=== PATIENT | female | born 1955 | race Caucasian/White ===

== ENCOUNTER 2022-01-18 13:02 | Outpatient (CLI) | payer MEDICARE, SELFPAY ==
[2022-01-18 13:37] LABS: Chloride* 100 mmol/L (96-114); Potassium* 3.9 mmol/L (3.6-5.1); Sodium* 140 mmol/L (135-149)
[2022-01-18 13:40] LABS: Blood Urea Nitrogen* 16 mg/dL (7-30); Carbon Dioxide* 33 mmol/L (20-32); Creatinine* 0.9 mg/dL (0.5-1.5); Estimated Glomerular Filt Rate 71 ml/min
[2022-01-18 13:41] LABS: Calcium* 9.7 mg/dL (8.4-10.6); Glucose* 225 mg/dL (60-115)
== END 2022-01-18 13:03 | disposition home or self-care (01) ==
PROVIDERS: PCP Internal Medicine; Visit Provider Internal Medicine
DX: I10 Essential (primary) hypertension (principal); Z13.1 Encounter for screening for diabetes mellitus
CPT/HCPCS: 80048

== ENCOUNTER 2022-02-21 15:15 | Outpatient (CLI) | payer MEDICARE, SELFPAY ==
--- NOTE | 2022-02-21 15:30 | CRLHL7_ITS ---
For Patients: As a result of the Century Cures Act, medical imaging exams and procedure reports are released immediately into your electronic medical record. You may view this report before your referring provider. If you have questions, please contact your health care provider. INDICATION: Radiculopathy. COMPARISON: 02/07/2022. Technique Sagittal T1, T2, and STIR sequences. Axial T1 and T2 weighted sequences. FINDINGS: Degenerative anterolisthesis of L4 on L5 measures approximately 3 mm. Otherwise, normal alignment. No fractures. No vertebral body loss of height. No evidence injury. No suspicious osseous lesions. Normal conus terminates at L1. T12-L1 L1-2 L2-3: No spinal canal neural foraminal narrowing. L3-4: Disc degeneration diffuse disc bulge eccentric to the left. Flattening of ventral thecal sac. Mild narrowing of spinal canal. Facet arthropathy results in mild right and moderate left neural foraminal narrowing. Potential impingement of the exiting left L3 nerve root. Mild facet arthropathy. L4-5: Disc degeneration. Diffuse disc bulge eccentric to the left. Mild narrowing of spinal canal. Facet arthropathy contributes to focal narrowing of the left subarticular recess with potential impingement of the traversing left L5 nerve root. No narrowing of the right neural foramen. Moderate narrowing of the left neural foramen. Potential impingement of the exiting left L4 nerve root. Mild facet arthropathy. L5-S1: No narrowing of spinal canal. No impingement of the traversing S1 nerve roots. No neural foraminal narrowing. Mild facet arthropathy. Normal visualized SI joints. IMPRESSION: 1. Trace degenerative anterolisthesis of L4 on L5. Otherwise normal alignment. No fractures 2. At L3-4, mild narrowing of the spinal canal. Mild right and moderate left neural foraminal narrowing. 3. At L4-5, mild narrowing of the spinal canal. Potential impingement of the traversing left L5 nerve root. Moderate narrowing of the left neuroforamen. Dictated by Sreekanth Redmond MD @ 02/21/2022 4:54:07 PM (Electronically Signed)
== END 2022-02-21 15:16 | disposition home or self-care (01) ==
LOC: MRI 15:16
PROVIDERS: PCP Internal Medicine; Visit Provider Orthopaedic Surgery Sports Medicine
DX: M54.16 Radiculopathy, lumbar region (principal); M51.26 Other intervertebral disc displacement, lumbar region; M62.830 Muscle spasm of back
CPT/HCPCS: 72148

== ENCOUNTER 2022-06-07 08:43 | Day surgery (SDC) | payer MEDICARE, SELFPAY ==
[2022-06-07] VITALS (24 sets, daily range): BP systolic 107–154; BP diastolic 52–84; PULSE 61–79; RESP 12–16; TEMP 35.5–37; O2SAT 90–97; BMI 39.4
[2022-06-07] MEDS: OXYCODONE (CR) 10 MG TAB.ER.12H PO (09:11)
[2022-06-07] MEDS: CELECOXIB 200 MG CAPSULE PO ×2 (09:11→21:24)
[2022-06-07] MEDS: ACETAMINOPHEN 500 MG TABLET 1000 MG PO ×2 (09:11→18:06)
[2022-06-07] MEDS: SODIUM CHLORIDE 0.9 % (FLUSH) 10 ML SYRINGE IVF (09:20)
[2022-06-07] MEDS: LACTATED RINGERS 1000 ML 1,000 ML 100 ML IV ×2 (09:20→13:05)
--- NOTE | 2022-06-07 12:07 | SUR.PREOP ---
TIME?OUT:?1208 PT/RN/MDA?VERIFICATION?OF?SURGICAL?SITE,?PROCEDURE,?AND?CONSENT OBTAINED?PRIOR?TO?INVASIVE?PROCEDURE.
[2022-06-07] MEDS: MIDAZOLAM HCL 1 MG/ML inj IVP (12:09)
[2022-06-07] MEDS: fentaNYL 100 MCG/2 ML inj IVP (12:09)
--- NOTE | 2022-06-07 12:12 | P.NB_ITS ---
Nerve Block Nerve Block Time Seen by Provider: 12:10 Date Seen: 06/07/22 Type of block requested by surgeon for post-operative analgesia: geniculars Side: left Time out performed: Yes Verification of patient name: Yes Verification of date of : Yes Site marking: site marked Name of person performing procedure: Alexi Continuous monitoring Was continuous monitoring of O2 sat, B/P, bed control specialist, recorded every 15 minutes?: Yes Procedure Checklist: sterile prep, needles and gloves Medications given in 5ml increments after negative aspiration: Ropivicaine %: 0.5 mL: 9 Needle gauge: 25 Patient tolerated procedure well: Yes Block Charges Block Charge (with Pro Fee): Genicular Nerve Block Use of Ultrasound Machine for Block: No
--- NOTE | 2022-06-07 12:12 | P.NB_ITS ---
Nerve Block Nerve Block Time Seen by Provider: 12:10 Date Seen: 06/07/22 Type of block requested by surgeon for post-operative analgesia: adductor canal Side: left Time out performed: Yes Verification of patient name: Yes Verification of date of : Yes Site marking: site marked Name of person performing procedure: Alexi Continuous monitoring Was continuous monitoring of O2 sat, B/P, cardiac nurse specialist, recorded every 15 minutes?: Yes Procedure Checklist: sterile prep, needles and gloves Ultrasound guided. Images saved: Yes Medications given in 5ml increments after negative aspiration: Ropivicaine %: 0.5 mL: 20 Needle gauge: 20 Decadron (mg): 10 Precedex (mcg): 25 Patient tolerated procedure well: Yes Additional comments: Needle noted adjacent to nerve Block Charges Block Charge (with Pro Fee): Femoral Nerve Use of Ultrasound Machine for Block: Yes- US Guidance/pain block
--- NOTE | 2022-06-07 12:12 | W.ANESCHARGE ---
Anesthesia Charges Start Date/Time Anesthesia Start Date: 06/07/22 Anesthesia Start Time: 12:15 Stop Date/Time Anesthesia Stop Date: 06/07/22 Anesthesia Stop Time: 14:21
[2022-06-07] MEDS: CEFAZOLIN 2 GM in 0.9 % SODIUM CHLORIDE Mini-bag 100 ML IVPB ×2 (12:25→18:06)
--- NOTE | 2022-06-07 12:26 | SUR.PREOP ---
Call placed to Jeremiah Russell ([phone]) to notify of delayed surgery time. Spouse verbalized understanding.
--- NOTE | 2022-06-07 12:28 | CRLHL7_ITS ---
For Patients: As a result of the Cures Act, medical imaging exams and procedure reports are released immediately into your electronic medical record. You may view this report before your referring provider. If you have questions, please contact your health care provider. Indication: POST OP TKA Technique: Two views left knee Findings/Impression: Hardware from a left total knee arthroplasty is in satisfactory position. Bone alignment is normal. No sign of acute fracture. Postop changes are within normal limits. Dictated by Ravinder Kim MD @ 06/08/2022 6:29:29 AM (Electronically Signed)
[2022-06-07] MEDS: TRANEXAMIC ACID 100 MG/ML INJ 1000 MG IV (12:30)
--- NOTE | 2022-06-07 13:45 | P.ORPRC_ITS ---
Procedure Note Date of procedure: 06/07/22 Procedure: PREOPERATIVE DIAGNOSIS: 1. Left knee osteoarthritis, primary, severe POSTOPERATIVE DIAGNOSIS: 1. Left knee osteoarthritis, primary, severe PROCEDURE: 1. Left total knee arthroplasty SURGEON: Chiki West MD. METER CHANGES RECORDS CLERK: RITU Baptiste - Of note, a skilled hotel administrative assistant was critical for this case to aid in patient positioning, tissue retraction, limb manipulation/positioning, and closure. ANESTHESIA: Spinal transition to LMA. EBL: 50ml IMPLANTS: DePuy J&J all cemented TKA - Attune PS femur size 6 narrow, size 7 tibia, 5 poly spacer, 35 mm patella TOURNIQUET: 85 min at 300 torr COMPLICATIONS: None evident INDICATIONS: The patient is a pleasant 66-year-old female who has experienced severe left knee pain and difficulty bearing weight. Workup included x-rays which revealed severe osteoarthrosis in the knee. Given the deformity, the dysfunction, and the pain, as well as the failure of nonoperative management, recommendation was made for surgery. FINDINGS: Full-thickness chondral loss broadly through the medial femur and medial tibial plateau were concave for dark and region of the distal femoral condyle suspicious of an AVN type of lesion. Significant patellofemoral cho ndromalacia as well. DESCRIPTION OF PROCEDURE: Following a thorough discussion of risks, benefits, and alternatives consent was obtained and the left knee was marked. The patient was brought to the operating room and placed supine on the operating table. Induction of anesthesia was undertaken. 2 g IV Ancef and 1 g tranexamic acid was administered within 1 hr of incision preoperatively. Proper time-out was performed identifying proper patient, site, procedure. The operative extremity was prepped and draped in the appropriate sterile fashion using ChloraPrep after the patient was positioned supine with all bony prominences well padded. A longitudinal, anterior, midline skin incision was made starting approximately 3cm proximal to the superior pole of the patella and advanced distal to the tibial tubercle. A median parapatellar arthrotomy was created. A medial subperiosteal sleeve was created with knife, asher elevator and curved osteotome. The retropatellar fatpad was resected and the synovium in the suprapatellar pouch excised to visualize the anterior femoral cortex. Femoral preparation was performed via an intramedullary guide. Step drill allowed access into the femoral canal. The distal cutting guide was placed with 5? of valgus and 11 mm cut on the distal femur. Femur was sized using a posterior referencing guide in 3? of external rotation. This found have a best fit with the sizing noted above. The 4 in 1 cutting block was then placed, and the distal femur shaped accordingly. The box cut was then created and the trial implant inserted to confirm appropriate fit. We turned our attention to the proximal tibia. Extramedullary guide was utilized for cutting with the goal of being 90 degree cut from the mechanical axis of the tibia in the varus/valgus plane utilizing tibial crest as the primary alignment. Initially a 2 mm resection was performed from the medial tibial plateau. An additional 2 mm the required resection. Ultimately, balancing was achieved in both flexion and extension in both varus and valgus. The knee was able to achieve full extension as well comfortably. The patella was initially measured and found have a thickness of 20 mm. It was resected back to approximately 14 mm. It was sized to be a best fit with as noted above. This was drilled, trial placed. All trials were placed and found to have an excellent stability and balance. At this stage, trial implants were removed, the knee was thoroughly irrigated with normal saline, and the cement was mixed. After irrigation, the knee was thoroughly dried, and cement placed, with the real tibial and femoral implants placed along with the patella. Trial poly spacer was placed and confirmed to have excellent range of motion and full extension, and the real poly spacer opened and inserted. All extra cement was removed, and a 3 min Betadine soak performed. Finally, a final irrigation round with normal saline was performed. Closure performed with 0 PDS and #0 Stratafix for the quad tendon/retinaculum. 2-0 Vicryl/Stratafix for the subcutaneous and 4-0 Monocryl for subcuticular closure. Dressings were applied and the patient was awoken from anesthesia after the tourniquet deflated and transferred the PACU in stable condition. A skilled hotel administrative assistant was critical for this case to aid in patient positioning, tissue retraction, bone exposure, limb manipulation/positioning, patient safety, and closure. PLAN: 1. Weight bear as tolerated operative extremity. 2. 23 hr perioperative antibiotics. 3. Ice. 4. PT/OT consults for ambulation assistance/mobility education. 5. Social work consult for discharge planning. 6. DVT prophylaxis with at SCDs, Slava Medeiros, and aspirin twice daily.
--- NOTE | 2022-06-07 14:21 | W.ANESCHARGE ---
Anesthesia Charges Start Date/Time Anesthesia Start Date: 06/07/22 Anesthesia Start Time: 12:15 Stop Date/Time Anesthesia Stop Date: 06/07/22 Anesthesia Stop Time: 14:21
[2022-06-07] MEDS: OXYCODONE 5 MG TABLET PO (16:10)
--- NOTE | 2022-06-07 16:13 | PM.IMCN1 ---
Date of Consult Patient: [facility] Patient Consult date: 06/07/22 Requesting Physician: Orthopedics Primary Care Provider: Jg Dean MD Consult Narrative Narrative: HOSPITALIST CONSULT Hospital Day # 1 Post Op Day # 0 total left knee arthroplasty SURGEON: Chiki West MD. ANESTHESIA: Spinal transition to LMA. EBL: 50ml IMPLANTS: DePuy TOURNIQUET: 85 min at 300 torr COMPLICATIONS: None evident The hospital medicine team was asked by Orthopedic team to manage the patient's diabetes, morbid obesity, COPD, chronic pain There have been no perioperative concerns or questions. I updated the [facility] histories and Medications and Allergies in the Expanse tabs REVIEW OF SYSTEMS: 12-point ROS completed with patient and negative unless otherwise stated in HPI or below. PHYSICAL EXAM: CODE STATUS: FULL CODE CONSTITUTIONAL: Conversive, good historian. A/O. Knows setting and context. VITAL SIGNS: see record. HEENT: Normocephalic, atraumatic. PERRL, EOMI, conjunctivae pink, no scleral icterus. Ears and nose externally normal. Pharynx normal. NECK: No JVD. No carotid bruit, no thyromegaly, no adenopathy. CHEST: Clear to auscultation bilaterally HEART: No harsh murmurs. S1/S2. ABDOMEN: Flat, soft, nontender. Normal bowel sounds. Moderately obese. EXTREMITIES: No edema. MUSCULOSKELETAL: Left knee is wrapped being iced. She is able to plantar flex and dorsiflex her left foot. No obvious hematoma. NEURO: Cranial nerves intact. Normal affect. No gross deficits. Speech intelligible. SKIN: No rashes, petechiae, concerning changes PSYCHIATRIC: Euthymic. INVESTIGATIONS: EMR Reviewed DISPOSITION: MedSurg Recovery; Discharge tomorrow DVT: Agree with ortho plan for DVT prevention GI: PO intake PFSH [facility] Medical History (Updated 06/07/22 @ 16:32 by Wendi Escamilla MD) Cataract (~2009) ?H26.9 - Unspecified cataract (ICD-10) Chronic low back pain ?M54.50 - Low back pain, unspecified (ICD-10) ?G89.29 - Other chronic pain (ICD-10) COPD (chronic obstructive pulmonary disease) ?J44.9 - Chronic obstructive pulmonary disease, unspecified (ICD-10) Diabetes ?E11.9 - Type 2 diabetes mellitus without complications (ICD-10) Hypertension ?I10 - Essential (primary) hypertension (ICD-10) Surgical History (Updated 06/07/22 @ 16:31 by Wendi Escamilla MD) History of tonsillectomy (~1965) ?Z90.89 - Acquired absence of other organs (ICD-10) Status post arthroscopy of left shoulder (07/05/05) ?Z98.890 - Other specified postprocedural states (ICD-10) Status post total left knee replacement (06/07/22) ?Z96.652 - Presence of left artificial knee joint (ICD-10) Family History (Updated 06/01/22 @ 12:37 by Fawn Mccallum RN) Brother Diabetes Colon cancer Bladder cancer High blood pressure Father Diabetes High blood pressure Sister Diabetes Colon cancer High blood pressure Mother Diabetes Colon cancer High blood pressure COPD (chronic obstructive pulmonary disease) Social History (Updated 05/02/22 @ 14:10 by Nikki Schulz ~ [facility] Smoking Status: Former smoker What tobacco products do you use: cigarettes Smoking packs per day: 1 Smoking cigarettes per day: 20.0 Years smoked: 46 Smoking pack-years: 46.00 Smoking quit date/years: <= 15 years ago Do you use any of these nicotine containing products: None Second hand tobacco smoke exposure: No How often do you have a drink containing alcohol: never AUDIT-C Alcohol total score: 0 Non-prescribed substance use: denies use Caffeine: Yes (occ) Little interest or pleasure in doing things: not at all Feeling down, depressed, or hopeless: several days service: No Meds Home Medications and Allergies Home Medications Medication Instructions Recorded Confirmed Type amlodipine 5 mg tablet 5 mg PO DAILY 01/26/22 06/07/22 History fluticasone 250 mcg-salmeterol 50 1 inh inhalation BID 01/26/22 06/07/22 History mcg/dose blistr powdr for inhalation loratadine 10 mg tablet 10 mg PO DAILY 05/16/22 06/07/22 History multivitamin 1 tab PO QDAY 05/16/22 06/07/22 History cyclobenzaprine 10 mg tablet 10 mg PO TID PRN muscle spasm 06/07/22 06/07/22 History lidocaine 5 % topical patch 1 patch topical Q24H PRN 06/07/22 06/07/22 History Allergies Allergy/AdvReac Type Severity Reaction Status Date / Time No Known Drug Allergies Allergy Verified 06/07/22 09:01 Exam Const: Vital Signs, click to edit/add: Vital Signs - 24 hr 06/07/22 09:15 06/07/22 12:04 06/07/22 12:10 Temperature 97.8 F Pulse Rate 63 68 62 Respiratory Rate 16 16 16 Blood Pressure 140/60 H 153/79 H 107/71 Pulse Oximetry 93 95 97 Oxygen Delivery Me thod Room Air Nasal Cannula Nasal Cannula Oxygen Flow Rate 0 2 2 06/07/22 14:20 06/07/22 14:25 06/07/22 14:30 Temperature 98.1 F Pulse Rate 62 62 61 Respiratory Rate 14 14 14 Blood Pressure 117/65 121/65 123/65 Pulse Oximetry 90 96 96 Oxygen Delivery Me thod Room Air Nasal Cannula Nasal Cannula Oxygen Flow Rate 2 2 06/07/22 14:35 06/07/22 14:40 06/07/22 14:45 Temperature Pulse Rate 70 70 70 Respiratory Rate 14 14 14 Blood Pressure 127/66 117/55 L 114/52 L Pulse Oximetry 92 92 94 Oxygen Delivery Me thod Nasal Cannula Nasal Cannula Room Air Oxygen Flow Rate 2 2 06/07/22 14:50 06/07/22 14:55 06/07/22 15:00 Temperature 98.0 F 98.1 F Pulse Rate 64 68 68 Respiratory Rate 14 14 14 Blood Pressure 124/75 121/62 120/72 Pulse Oximetry 95 95 95 Oxygen Delivery Me thod Nasal Cannula Nasal Cannula Room Air Oxygen Flow Rate 2 2 06/07/22 15:05 Temperature Pulse Rate 68 Respiratory Rate 14 Blood Pressure 121/73 Pulse Oximetry 95 Oxygen Delivery Me thod Room Air Oxygen Flow Rate Assessment and Plan Assessment and plan (1) Status post total left knee replacement: Problem comment: No apparent perioperative complications. I reviewed her home meds and restarted those appropriately. I am starting her on sliding scale insulin with Accu-Cheks. I will have an IS and Aerobika bedside. Ordered p.r.n. nebs. Good pulmonary hygiene will be needed. Status: Acute (2) Hypertension, benign: Problem comment: Hold antihypertensives, add back carefully Status: Acute (3) Diabetes: Problem comment: Sliding scale insulin with Accu-Cheks. Continue home med regimen. Status: Acute (4) COPD (chronic obstructive pulmonary disease): Problem comment: Reviewed history. No wheezing noted on exam today. Status: Acute (5) Obesity: Status: Acute
[2022-06-07] MEDS: glyBURIDE 5 MG TABLET 2.5 MG PO (18:06)
--- NOTE | 2022-06-07 18:52 | PC.NURSE ---
Pt alert and oriented. Pt cooperative during shift. Pt has had pain ranging from 2-5 during shift see EMAR for intervention. Pt has not ambulated during shift. Pt has not urinated during shift. Pt had diet advanced from clears-full liquid-regular and tolerated well. VSS. Pt had one emesis at 1840 one hour after dinner. Pt had no nausea before or after emesis.?Blood glucose 258-insulin given per protocol.
[2022-06-07] MEDS: SENNOSIDES 1 TAB TABLET 2 TAB PO (21:24)
[2022-06-07] MEDS: ASPIRIN 81 MG TABLET EC PO (21:25)
[2022-06-08] MEDS: CEFAZOLIN 2 GM in 0.9 % SODIUM CHLORIDE Mini-bag 100 ML IVPB ×2 (01:52→09:34)
[2022-06-08 03:00] VITALS: BP 129/82; PULSE 71; RESP 12; TEMP 36.5; O2SAT 90
[2022-06-08 03:23] VITALS: TEMP 36.2
[2022-06-08] MEDS: ACETAMINOPHEN 500 MG TABLET 1000 MG PO ×2 (03:23→09:34)
--- NOTE | 2022-06-08 06:20 | PC.NURSE ---
Patient is alert and oriented x 3, on RA, vss, regular diet. Patient did get up to the bathroom, SBA with a walker, voided 700ml. Drinking adequate fluids. Pain has not gone above a 2 all night. Dressing in CDI. Glucose level at HS was 361.
[2022-06-08 06:35] LABS: HCO3 VBG 33 mmol/L (21-28); PCO2 VBG 57 mmHG (40-50); PO2 VBG 33.2 mmHG (25-47); pH VBG 7.368 (7.32-7.43)
[2022-06-08] MEDS: OXYCODONE 5 MG TABLET PO ×2 (06:35→08:35)
[2022-06-08 06:42] LABS: Basophils Percent Auto 0.1 % (0.0-3.0); Hematocrit 41.4 % (33.0-51.0); Immature Granulocytes Pct Auto 0.2 %; Lymphocytes Percent Auto 5.8 % (20-44); Mean Corpuscular HGB Conc 34 gm/dL (32-36); Mean Corpuscular Hemoglobin 29 pg (26-34); Mean Corpuscular Volume 85 fL (80-100); Monocytes Percent Auto 3.1 % (0.0-11.0); Neutrophils Percent Auto 90.8 % (42.0-72.0); Platelet Count* 166 K/uL (140-440); RDW Coefficient of Variation % 12.8 % (11.5-15.5); Red Blood Count 4.85 m/uL (4.00-5.20); White Blood Count* 12.41 K/uL (4.50-11.00)
[2022-06-08 06:51] LABS: Slide Review Reflex No
[2022-06-08 07:06] LABS: Potassium* 3.5 mmol/L (3.6-5.1); Sodium* 135 mmol/L (135-149)
[2022-06-08 07:09] LABS: Blood Urea Nitrogen* 20 mg/dL (7-30); Creatinine* 0.8 mg/dL (0.5-1.5); Est. Creatinine Clearance* 41.76; Estimated Glomerular Filt Rate 81 ml/min
[2022-06-08 07:14] LABS: NT Pro B Type NatriureticPept* 233 pg/mL
[2022-06-08 07:40] VITALS: BP 142/77; PULSE 80; RESP 18; TEMP 36.3; O2SAT 93
[2022-06-08] MEDS: glyBURIDE 5 MG TABLET 2.5 MG PO (08:27)
[2022-06-08] MEDS: LORATADINE 10 MG TABLET PO (08:28)
[2022-06-08] MEDS: SENNOSIDES 1 TAB TABLET 2 TAB PO (08:30)
[2022-06-08] MEDS: CELECOXIB 200 MG CAPSULE PO (08:30)
[2022-06-08] MEDS: ASPIRIN 81 MG TABLET EC PO (08:34)
--- NOTE | 2022-06-08 08:36 | PM.ORPN ---
Subjective Subjective Date Seen: 06/08/22 Principal diagnosis: Status postop day 1 left total knee arthroplasty Interval history: Patient reports doing well. Recent events include nausea and vomiting x3, without warning. Patient does not feel sick to her stomach. Most recent episode of emesis she did not keep down her acetaminophen. Pain is minimal, and managed with scheduled /PRN medications and ice. DVT prophylaxis 81 mg aspirin by mouth twice daily, bilateral knee high Slava stockings, and SCDs. Denies fevers, chills, aches, CP, SOB/COBURN, tachycardia, or lightheadedness. No passing gas this time. Ortho Exam Narrative Exam Narrative: -Patient appears comfortable; no apparent acute distress; eating breakfast, toast -Alert and oriented times 3 -Operative knee mildly swollen; soft tissues supple; no ecchymosis; no erythematous streaking Warmth appropriate -Surgical dressing clean, dry, intact; no drainage -Bilateral calfs soft; no significant swelling, edema, tenderness, erythema, discoloration, warmth, or palpable cords -2+ DP/PT pulses, intact dermatomes and myotomes distally (5/5 strength) Const Vital Signs, click to edit/add: Vital Signs - 24 hr 06/07/22 09:15 06/07/22 12:04 06/07/22 12:10 Temperature 97.8 F Pulse Rate 63 68 62 Pulse Rate [Right Pulse Oximeter] Respiratory Rate 16 16 16 Blood Pressure 140/60 H 153/79 H 107/71 Blood Pressure [Left Arm] Pulse Oximetry 93 95 97 Oxygen Delivery Method Room Air Nasal Cannula Nasal Cannula Oxygen Flow Rate 0 2 2 06/07/22 14:20 06/07/22 14:25 06/07/22 14:30 Temperature 98.1 F Pulse Rate 62 62 61 Pulse Rate [Right Pulse Oximeter] Respiratory Rate 14 14 14 Blood Pressure 117/65 121/65 123/65 Blood Pressure [Left Arm] Pulse Oximetry 90 96 96 Oxygen Delivery Method Room Air Nasal Cannula Nasal Cannula Oxygen Flow Rate 2 2 06/07/22 14:35 06/07/22 14:40 06/07/22 14:45 Temperature Pulse Rate 70 70 70 Pulse Rate [Right Pulse Oximeter] Respiratory Rate 14 14 14 Blood Pressure 127/66 117/55 L 114/52 L Blood Pressure [Left Arm] Pulse Oximetry 92 92 94 Oxygen Delivery Method Nasal Cannula Nasal Cannula Room Air Oxygen Flow Rate 2 2 06/07/22 14:50 06/07/22 14:55 06/07/22 15:00 Temperature 98.0 F 98.1 F Pulse Rate 64 68 68 Pulse Rate [Right Pulse Oximeter] Respiratory Rate 14 14 14 Blood Pressure 124/75 121/62 120/72 Blood Pressure [Left Arm] Pulse Oximetry 95 95 95 Oxygen Delivery Method Nasal Cannula Nasal Cannula Room Air Oxygen Flow Rate 2 2 06/07/22 15:05 06/07/22 15:17 06/07/22 15:17 Temperature 96.3 F L 96.3 F L Pulse Rate 68 68 Pulse Rate [Right Pulse Oximeter] 68 Respiratory Rate 14 16 16 Blood Pressure 121/73 Blood Pressure [Left Arm] 138/70 138/70 Pulse Oximetry 95 90 Oxygen Delivery Method Room Air Room Air Room Air Oxygen Flow Rate 0 06/07/22 15:30 06/07/22 15:45 06/07/22 16:00 Temperature 96.3 F L 96.3 F L 96.4 F L Pulse Rate Pulse Rate [Right Pulse Oximeter] 72 64 64 Respiratory Rate 16 16 16 Blood Pressure Blood Pressure [Left Arm] 148/84 H 149/81 H 154/78 H Pulse Oximetry 91 91 90 Oxygen Delivery Method Room Air Room Air Room Air Oxygen Flow Rate 0 0 0 06/07/22 16:15 06/07/22 16:45 06/07/22 17:15 Temperature 96.4 F L 96.6 F L 96.6 F L Pulse Rate Pulse Rate [Right Pulse Oximeter] 71 74 71 Respiratory Rate 16 16 16 Blood Pressure Blood Pressure [Left Arm] 151/78 H 148/78 H 138/73 Pulse Oximetry 93 93 96 Oxygen Delivery Method Room Air Room Air Room Air Oxygen Flow Rate 0 0 0 06/07/22 18:00 06/07/22 19:00 06/07/22 21:25 Temperature 96.7 F L 96.7 F L 98.6 F Pulse Rate Pulse Rate [Right Pulse Oximeter] 79 79 Respiratory Rate 16 16 Blood Pressure Blood Pressure [Left Arm] 136/71 136/71 Pulse Oximetry 90 90 Oxygen Delivery Method Room Air Room Air Oxygen Flow Rate 0 0 06/07/22 19:00 06/08/22 03:23 06/07/22 23:00 Temperature 96 F L 97.2 F L Pulse Rate Pulse Rate [Right Pulse Oximeter] 72 76 Respiratory Rate 12 12 Blood Pressure Blood Pressure [Left Arm] 136/71 Pulse Oximetry 92 Oxygen Delivery Method Room Air Oxygen Flow Rate 06/07/22 23:00 06/07/22 23:00 06/08/22 03:00 Temperature 97.7 F 97.7 F Pulse Rate Pulse Rate [Right Pulse Oximeter] 79 71 Respiratory Rate 12 12 Blood Pressure Blood Pressure [Left Arm] 133/53 L 129/82 Pulse Oximetry 96 96 90 Oxygen Delivery Method Room Air Room Air Oxygen Flow Rate Assessment and Plan Assessment and plan (1) Status post total left knee replacement: Problem details: POD 1 left total knee arthroplasty Status: Acute (2) Hypertension, benign: Problem details: Hold antihypertensives, add back carefully Status: Acute (3) Diabetes: Problem details: Sliding scale insulin with Accu-Cheks. Continue home med regimen. Status: Acute (4) COPD (chronic obstructive pulmonary disease): Problem details: Reviewed history. No wheezing noted on exam today. Status: Acute (5) Obesity: Status: Acute Plan - Complete 23 hour perioperative antibiotics. - PT/OT consult for education and assistance. - Social work consult for discharge planning - Prescribed analgesics as needed - DVT prophylaxis: 81 mg aspirin by mouth twice daily, bilateral knee high Slava Hose stockings and SCDs - Anticipation is for discharge to home with spouse 06/08/2022 if the patient remains medically stable, pain is controlled, and they are safe with mobilization.
--- NOTE | 2022-06-08 08:40 | PM.DS1 ---
DS: Providers Provider Date Seen: 06/08/22 Date of admission: Med/Surg Recovery 06/07/2022 Primary care physician: Jg Dean MD Consults: 06/07/22 15:17 Consult to Occupational Therapy [CONS] Routine Comment: Reason(s) for OT Consult:: ADLs Prior to Discharge Any Restrictions?:: See Comment Comment: See nursing activity order for any restrictions. Consult to Physical Therapy [CONS] Routine Comment: Ambulate in the norman today. Reason(s) for PT Consult:: TKA TX Protocol POD#0 Any Restrictions?:: See Comment Comment: See nursing activity order for any restrictions. Consult to Physician [CONS] Routine Comment: Consulting Provider: Hospitalists Has provider been notified: No Consult to Steam Tank Operator [CONS] Routine Comment: Reason for Consult:: Discharge Planning Needs Attending Physician on discharge: Chiki West MD Date of Discharge: 06/08/22 DS: Diagnosis Discharge Diagnosis (1) Status post total left knee replacement: Status: Acute Problem details: POD 1 left total knee arthroplasty DS: Summary Hospital Course Hospital Course: The patient has a history of left knee osteoarthritis, primary, severe. After appropriate preoperative evaluation, the patient underwent left total knee arthroplasty. Postoperatively given anticoagulation for deep vein thrombosis prophylaxis. Some issues with nausea and vomiting postoperative, but slowly improving with slow advancement of diet. They progressed to PT/OT and were felt ready and prepared for discharge to home with appropriate pain medication and anticoagulation medications. Status at Discharge Functional status at discharge: uses cane/walker Overall status at discharge: patient is progressing back to baseline Time Spent with Patient Time attestation: Total time spent providing and/or coordinating discharge services: Time spent: Less than 30 minutes Exam Const: Vital Signs, click to edit/add: Vital Signs - 24 hr 06/07/22 09:15 06/07/22 12:04 06/07/22 12:10 Temperature 97.8 F Pulse Rate 63 68 62 Pulse Rate [Right Pulse Oximeter] Respiratory Rate 16 16 16 Blood Pressure 140/60 H 153/79 H 107/71 Blood Pressure [Le ft Arm] Pulse Oximetry 93 95 97 Oxygen Delivery Me thod Room Air Nasal Cannula Nasal Cannula Oxygen Flow Rate 0 2 2 06/07/22 14:20 06/07/22 14:25 06/07/22 14:30 Temperature 98.1 F Pulse Rate 62 62 61 Pulse Rate [Right Pulse Oximeter] Respiratory Rate 14 14 14 Blood Pressure 117/65 121/65 123/65 Blood Pressure [Le ft Arm] Pulse Oximetry 90 96 96 Oxygen Delivery Me thod Room Air Nasal Cannula Nasal Cannula Oxygen Flow Rate 2 2 06/07/22 14:35 06/07/22 14:40 06/07/22 14:45 Temperature Pulse Rate 70 70 70 Pulse Rate [Right Pulse Oximeter] Respiratory Rate 14 14 14 Blood Pressure 127/66 117/55 L 114/52 L Blood Pressure [Le ft Arm] Pulse Oximetry 92 92 94 Oxygen Delivery Me thod Nasal Cannula Nasal Cannula Room Air Oxygen Flow Rate 2 2 06/07/22 14:50 06/07/22 14:55 06/07/22 15:00 Temperature 98.0 F 98.1 F Pulse Rate 64 68 68 Pulse Rate [Right Pulse Oximeter] Respiratory Rate 14 14 14 Blood Pressure 124/75 121/62 120/72 Blood Pressure [Le ft Arm] Pulse Oximetry 95 95 95 Oxygen Delivery Me thod Nasal Cannula Nasal Cannula Room Air Oxygen Flow Rate 2 2 06/07/22 15:05 06/07/22 15:17 06/07/22 15:17 Temperature 96.3 F L 96.3 F L Pulse Rate 68 68 Pulse Rate [Right Pulse Oximeter] 68 Respiratory Rate 14 16 16 Blood Pressure 121/73 Blood Pressure [Le ft Arm] 138/70 138/70 Pulse Oximetry 95 90 Oxygen Delivery Me thod Room Air Room Air Room Air Oxygen Flow Rate 0 06/07/22 15:30 06/07/22 15:45 06/07/22 16:00 Temperature 96.3 F L 96.3 F L 96.4 F L Pulse Rate Pulse Rate [Right Pulse Oximeter] 72 64 64 Respiratory Rate 16 16 16 Blood Pressure Blood Pressure [Le ft Arm] 148/84 H 149/81 H 154/78 H Pulse Oximetry 91 91 90 Oxygen Delivery Me thod Room Air Room Air Room Air Oxygen Flow Rate 0 0 0 06/07/22 16:15 06/07/22 16:45 06/07/22 17:15 Temperature 96.4 F L 96.6 F L 96.6 F L Pulse Rate Pulse Rate [Right Pulse Oximeter] 71 74 71 Respiratory Rate 16 16 16 Blood Pressure Blood Pressure [Le ft Arm] 151/78 H 148/78 H 138/73 Pulse Oximetry 93 93 96 Oxygen Delivery Me thod Room Air Room Air Room Air Oxygen Flow Rate 0 0 0 06/07/22 18:00 06/07/22 19:00 06/07/22 21:25 Temperature 96.7 F L 96.7 F L 98.6 F Pulse Rate Pulse Rate [Right Pulse Oximeter] 79 79 Respiratory Rate 16 16 Blood Pressure Blood Pressure [Le ft Arm] 136/71 136/71 Pulse Oximetry 90 90 Oxygen Delivery Me thod Room Air Room Air Oxygen Flow Rate 0 0 06/07/22 19:00 06/08/22 03:23 06/07/22 23:00 Temperature 96 F L 97.2 F L Pulse Rate Pulse Rate [Right Pulse Oximeter] 72 76 Respiratory Rate 12 12 Blood Pressure Blood Pressure [Le ft Arm] 136/71 Pulse Oximetry 92 Oxygen Delivery Me thod Room Air Oxygen Flow Rate 06/07/22 23:00 06/07/22 23:00 06/08/22 03:00 Temperature 97.7 F 97.7 F Pulse Rate Pulse Rate [Right Pulse Oximeter] 79 71 Respiratory Rate 12 12 Blood Pressure Blood Pressure [Le ft Arm] 133/53 L 129/82 Pulse Oximetry 96 96 90 Oxygen Delivery Me thod Room Air Room Air Oxygen Flow Rate DS: Data Data Completed and Pending Labs on day of discharge: Labs from last 24 hours 06/08/22 06:20 WBC 12.41 H RBC 4.85 Hgb 14.0 Hct 41.4 MCV 85 MCH 29 MCHC 34 RDW Coeff of Sa[place] 12.8 Plt Count 166 Neut % (Auto) 90.8 H Lymph % (Auto) 5.8 L [place] % (Auto) 3.1 Eos % (Auto) 0.0 Baso % (Auto) 0.1 Neut # (Auto) 11.30 H Lymph # (Auto) 0.70 L [place] # (Auto) 0.40 Eos # (Auto) 0.00 Baso # (Auto) 0.00 VBG pH 7.368 VBG pCO2 57 H VBG pO2 33.2 VBG HCO3 33 H Sodium 135 Potassium 3.5 L BUN 20 Creatinine 0.8 Estimated Creat Clear 41.76 Estimated GFR 81 NT-Pro-B Natriuret Pep 233 Discharge Plan Discharge Disposition: Home, Self-Care Discharging Surgeon: Chiki West Follow-[facility]ment: [facility] Prescriptions: New sennosides-docusate sodium [Senna-S] 8.6-50 mg tablet 1 - 4 tab-cap PO BID PRN (Reason: constipation) Qty: 60 0RF Rx Instructions: Hold medication if experiencing loose stools. aspirin 81 mg tablet,delayed release (DR/EC) 81 mg PO BID Qty: 60 0RF Rx Instructions: Medication to help prevent blood clots postoperatively; take TWICE daily. acetaminophen 500 mg capsule 500 - 1,000 mg PO Q6H MDD 4000mg PRNQty: 100 0RF oxycodone 5 mg tablet 2.5 - 5 mg PO Q4-6H MDD 6 PRN (Reason: pain) Qty: 42 0RF Rx Instructions: Take as needed for postop pain: 2.5mg mild pain, 5mg moderate-severe pain; wean as tolerated. Continued amlodipine 5 mg tablet 5 mg PO DAILY fluticasone propion-salmeterol 250-50 mcg/dose blister with device 1 inh inhalation BID glyburide 2.5 mg tablet 2.5 mg PO BID Qty: 60 3RF loratadine 10 mg tablet 10 mg PO DAILY multivitamin Tablet 1 tab PO QDAY cyclobenzaprine 10 mg tablet 10 mg PO TID PRN (Reason: muscle spasm) lidocaine 5 % adhesive patch,medicated 1 patch topical Q24H PRN albuterol sulfate 90 mcg/actuation HFA aerosol inhaler 2 puff inhalation Q4H PRN (Reason: shortness of breath or wheezing) Qty: 8.5 2RF chlorthalidone 25 mg tablet 25 mg PO QDAY Qty: 90 3RF Activity Level: Activity as Tolerated, Weight Bearing as Tolerated, Use Cane and Use Walker Activity Detail: Wound: ?Do not remove original dressing; we will remove this at first postop visit in 1 week. Only remove dressing if integrity is in question. ?No immersing wound in water; showering okay; light scrub with your hand and body soap, rinse, dab dry ?Sutures are under the skin, will dissolve; allow surgical glue to come off naturally; do not scrub the wound or apply ointments/lotions ?Call our office with any redness that streaks, excessive drainage from the wound, or wound gapping. Ice/Elevate: ?Ice as needed for swelling and discomfort (cryocuff or ice pack); elevate frequently above the heart ARRON socks: ?Wear for 1 month, remove for 1 hour 3 times per day ?These are frustrating to take on/off, but are important for blood clot prevention for 1 month after surgery Blood Clot Prevention (DVT): ?Medication: 81 mg aspirin by mouth twice daily (1 month) Driving: ?Do not drive while taking narcotic pain medication ?Anticipate 4-6 weeks no driving if operative leg is driving leg Dental: ?No elective dental work for 6 months post-op. If there is an urgent/emergent dental need, contact our office for an antibiotic prescription. Smoking/Alcohol: ?Do not smoke; do no drink alcohol especially when taking postoperative oral narcotic medication Seek Care from you Primary Care Provider if you experience the following issues in the postoperative phase and beyond: ?Bacterial infections such as: pneumonia, bacterial skin infection (cellulitis), UTI, high fever, chills unrelated to the operative body part - call your primary care physician urgently for treatment in hopes to protect your health and the metal implant. Referrals: ?PT, OT per patient preference - evaluate treat total knee arthroplasty protocol (gait training, ROM, ADLs) Follow up: ?Ortho surgeon follow-up in 6 weeks; repeat radiographs three views operative knee ?PA-C visit in 1 week *If there are any acute concerns regarding your surgery, please call our orthopedic clinic ([phone]) Discharge Diet: Diabetic Patient Instructions: Surgical Site Infections (DC) Forms: Work/School Release Follow-up: Chiki West MD [Staff Physician] - None (With Latrell in [place], not with Dr. West) Jg Dean MD [Primary Care Provider] - Latrell Ramos PA-C [Physician Hand Cloth Folder] - 06/15/22 11:50 am ([facility] Ortho appointment with Latrell SHABAZZ) Discharge Orders: Discharge Order (Routine); Ordered 06/08/22 Ordered By: Latrell Ramos Consulting provider completed their portion of the discharge: Yes
--- NOTE | 2022-06-08 10:45 | PC.NURSE ---
Pt alert and oriented. Pt cooperative and pleasant. Pt SBA with walker and gait belt. Pt?s dressing is dry and intact. Pt has had pain ranging from 5-1 during shift. EMAR for intervention. Pt had no complaints of N/V. Cryocuff applied during shift. Pt discharged home with .?
--- NOTE | 2022-06-08 12:24 | PC.SOCIAL ---
Per therapy pt is doing well. There are no identified social work needs. Pt will get assistance from spouse during recovery.
== END 2022-06-08 10:47 | disposition home or self-care (01) ==
LOC: OR 08:43 → MEDSURG 08:46
PROVIDERS: Family Medicine; PCP Internal Medicine; Visit Provider Orthopaedic Surgery Sports Medicine
PROC: (CPT 27447; principal; 2022-06-07 10:45)
DX: M17.12 Unilateral primary osteoarthritis, left knee (principal); R11.2 Nausea with vomiting, unspecified; E11.9 Type 2 diabetes mellitus without complications; E66.01 Morbid (severe) obesity due to excess calories; Z68.39 Body mass index [BMI] 39.0-39.9, adult; J44.9 Chronic obstructive pulmonary disease, unspecified; G89.29 Other chronic pain; M54.50 Low back pain, unspecified; I10 Essential (primary) hypertension
CPT/HCPCS: 27447; 01402; 36415; 64447; 64454; 73560; 76942; 82565; 82803; 82962; 83880; 84132; 84295; 84520; 85025; 97110; 97116; 97161; 97165; A9270; C1776; J0330; J0690; J1100; J2250; J2405; J2704; J2795; J3010; J7120

== ENCOUNTER 2022-08-24 13:00 | Outpatient (RCR) | payer MEDICARE, SELFPAY ==
--- NOTE | 2022-05-30 16:56 | PT.OPEX ---
PT [facility] Eval PT [facility] Outpatient Eval Start: 05/30/22 16:37 Freq: Status: Active Protocol: Document 05/30/22 16:40 ANDRES (Rec: 05/30/22 16:54 ANDRES [id number]) E-signed By Maryjane Hutchison DPT Physical Therapy Outpatient Evaluation Insurance Information Recert Due Date 08/28/22 Insurance Name Medicare B Medical Diagnosis L knee OA L knee TKA 06/07/22 Treating Diagnosis L knee pain, impaired L knee ROM, impaired L knee/LE mobility/strength, limping/ antalgic gait, limited tolerance for extended standing Subjective Subjective Patient reports chronic L knee pain leading up to L TKA scheduled for 06/07/22. Reports limited tolerance for extended standing, walking. Gait has been limping, painful . She has not been using an AD. Patient is planning to borrow FWW and some equipment from a family member. Date of Last Physician Visit 05/02/22 Date of Surgery (If applicable) 06/07/22 Current Work Status Retired Assessment Assessment/Impression Patient is a 66 year old female with L knee pain, impaired L knee ROM, impaired L knee/LE mobility/strength, limping/antalgic gait, limited tolerance for extended standing. She is seen in PT today for pre-op session to provide education/information on upcoming TKA surgery, safety information/HO, equipment instruction including use of FWW, and instruction in TKA exercises. Handouts issued for exercises , patient to perform them leading up to surgery. Reviewed PT/OT plan during hospital stay and patient is scheduled for OP PT post op. Patient lives with spouse and he is able to assist her as needed after surgery. She is planning to borrow a FWW and bath bench from family. She will check to see if she can borrow a commode from them as well. She has a fish receiver and family will be helping to install suction grab bars in the shower this weekend. No stairs to enter the home. Once inside, patient reports a flight of stairs up to the main level. 2 railings on the lower half of the stairway and then one railing/wall on the upper half. Once upstairs , patient can stay on the main level for bedroom, bathroom, kitchen. Patient will return to PT after surgery. She would benefit from skilled PT for pain/sx management, improved knee ROM, improved knee/LE mobility/strength, improved gait, balance/ proprioception training, and establishment of HEP. Plan of Care Rehabilitation Potential Good Physical Therapy Goals 1. Patient will be educated in TKA pre/post-op safety, mobility, and exercises with HOs provided within one visit with patient returning to PT for post op treatment after L TKA surgery on 04/04/21. PT goals will be updated to TKA rehab goals when patient returns post op. Coordination/Communication With Referral Source Treatment Plan/Direct Interventions Gait Training,Manual Therapy, Therapeutic Exercises Frequency/Duration one pre-op visit 2x/week post op Patient Will Be Discharged From Therapy Completion of LTG(s),Skills Plateau,Independent w/HEP, Independently Progressing Evaluation Billing Untimed Code Treatment Minutes 33 Complexity Moderate Certification Information Initial Certification Date 05/30/22 Ending Certification Date 08/28/22 Provider Signature Shows Agreement With POC & Medical Necessity Physician Signature & Date Requested Please Sign/Date Here Physician Comment/Change : Physician NPI Number #
== END 2022-12-22 23:59 | disposition home or self-care (01) ==
PROVIDERS: PCP Internal Medicine; Visit Provider Orthopaedic Surgery Sports Medicine
DX: M17.12 Unilateral primary osteoarthritis, left knee (principal); Z96.652 Presence of left artificial knee joint; M25.562 Pain in left knee; R26.9 Unspecified abnormalities of gait and mobility; Z74.09 Other reduced mobility; Z51.89 Encounter for other specified aftercare
CPT/HCPCS: 97110; 97162; 97164

== ENCOUNTER 2023-01-08 11:10 | Outpatient (CLI) | payer MEDICARE, SELFPAY ==
--- OUTSIDE RECORDS SUMMARY | 2023-01-12 12:03 | XMS_ITS | Continuity of Care Document ---
Author Name Unknown Organization [facility] Address [address] [place] [address] Phone Care Team Providers Care Boat Canvas Maker Installer Name Role Phone Laura MCCALL, Crispin Unavailable Unavailable Allergies, Adverse Reactions, Alerts Substance Reaction Status Criticality No Known Allergies Active No Inform ation Medications Medication Instructions Dosage Effective Dates (start - stop) Status Comments VENTOLIN HFA (unknown strength) Not Available - Active TYLENOL (unknown strength) Not Available - Active MULTIVITAMINS (unknown strength) Not Available - Active LORATADINE (unknown strength) Not Available - Active INCRUSE ELLIPTA (unknown strength) Not Available - Active CHLOROTHIAZIDE (unknown strength) Not Available - Active ASPIRIN (unknown strength) Not Available - Active AMLODIPINE BESYLATE (unknown strength) Not Available - Active ADVAIR HFA (unknown strength) Not Available - Active METFORMIN HCL ER (unknown strength) Not Available - Active IRON (unknown strength) Not Available - No Longer Active Procedures Procedure Date Office/Outpatient Visit,Est, Low 2020 Office/Outpatient Visit,New, [facility] 2019 Advance Directives Directive Yes / No Effective Date File Name No Information Encounters Encounter Description Practice Location Reason(s) For Visit Diagnoses Date Provider Providers Copied on Encounter Office/Outpa tient Visit,Est, Low [facility], [address], [place], [id number] , tel:[phone] [facility] Spinal stenosis, cervical regionCervical disc disorder at C4-C5 level with myelopathyCervical disc disorder at C5-C6 level with myelopathy Feb-0 1 Laura Roa. [facility], [address], [address], [place], [place], [id number] , . tel:[phone] [facility]erring [facility]: [facility] [address] [place], [address]. tel:[phone] Office/Outpa tient Visit,[facility], [facility], [address], [place], [place], [id number] , [place] tel:[phone] [facility] Spinal stenosis, cervical regionCervical disc disorder at C4-C5 level with myelopathyCervical disc disorder at C5-C6 level with myelopathy Sep- 0 Laura Roa. [facility], [address], [address], [place], [place], [id number] , [place]. tel:[phone] Ref[facility]: [facility] [address] [place], [address]. tel:[phone] Family History Family Member Type Diagnosis Age At Onset No Information Payers Payer name Insurance type Covered constitution party ID Diego lerma(s) [id number] Social History Type Description Quantity Date Captured Comments Alcohol Use Details Unknown Caffeine Use Details Unknown Tobacco Use Status Occasional cigarette smoker Smoking Status Former smoker Smoking Tobacco Use Details Cigarette: No Details Available Cigarette: No Details Available Sex Female Vital Signs Date / Time: Height Weight BMI Pulse Rate Blood Pressure Temperature Respiratory Rate Body Surface Area Head Circumference Head Circ. Percentile Wt./[place]. Percentile BMI percentile Pulse Ox Inhaled Ox 2:09 PM 62.00 in 83.824 kg (184.80 lbs) 33.8 0 kg/m eter (2) 97.60 F Chief Complaint And Reason For Visit No Information Reason For Referral Reason For Referral No Information History Of Present Illness Encounter Date Complaint History Of Prese nt Illness No Information Functional Status Date Functional Assessmen t No Information Instructions Date Instruction Additional Infor mation No Information Assessments Type Assessment Date assessment Spinal stenosis, cervical region assessment Cervical disc disorder at C4-C5 level with myelopathy assessment Cervical disc disorder at C5-C6 level with myelopathy Patient Care Teams Name Effective Dates (start - stop) Status Members No Information
== END 2023-01-08 11:11 | disposition home or self-care (01) ==
LOC: NFLDREF 01-12 12:02
PROVIDERS: PCP Internal Medicine; Referring Provider Internal Medicine; Visit Provider Internal Medicine
DX: E11.9 Type 2 diabetes mellitus without complications (principal); I10 Essential (primary) hypertension; Z13.6 Encounter for screening for cardiovascular disorders
CPT/HCPCS: 80053; 80061

== ENCOUNTER 2023-04-19 14:41 | Outpatient (CLI) | payer MEDICARE, SELFPAY ==
--- NOTE | 2023-04-19 14:40 | MM_ITS ---
Patient: MARTELL RIOS Facility:?[facility] Patient ID:?[id number] Site Patient ID:?[id number]. Site :?[id number] Study:?XRay-Breast Bilateral 3D W/CAD-04/19/2023 4:43:17 PM Ordering Physician:Enzo Final Report: BILATERAL SCREENING MAMMOGRAM WITH COMPUTER-AIDED DETECTION AND TOMOSYNTHESIS TECHNIQUE: CC and MLO views were obtained. These mammographic images have been obtained using full-field digital technique. These mammographic images were interpreted with the benefit of computer-aided detection. Breast Tomosynthesis was used in this interpretation. COMPARISON FILM: 06/14/15. FINDINGS: The breasts are almost entirely fatty. IMPRESSION: There is no radiographic evidence for malignancy. ASSESSMENT: BI-RADS Category 1: Negative RECOMMENDATION: Routine screening mammogram in 1 year. A lay language report of this examination will be provided to the patient. Ravinder Kim M.D. Diagnostic Radiologist [email or web address] DSM/sp R& Transcribed: 2:52 p.m. SP/Dictated by: Ravinder Kim MD @ 04/20/2023 12:55:00 PM Signed by:?Ravinder Kim MD @04/20/2023 3:04:05 PM (Electronic Signature)
== END 2023-04-19 14:42 | disposition home or self-care (01) ==
LOC: MAMMO 14:42
PROVIDERS: PCP Internal Medicine; Visit Provider Internal Medicine
DX: Z12.31 Encounter for screening mammogram for malignant neoplasm of breast (principal)
CPT/HCPCS: 77063; 77067

== ENCOUNTER 2023-07-16 11:20 | Outpatient (CLI) | payer MEDICARE, SELFPAY ==
--- OUTSIDE RECORDS SUMMARY | 2023-08-03 08:36 | XMS_ITS | Clinical Summary ---
Author Organization [facility] Address [place], [place] [address] Care Team Providers Care Software Engineer Intern Name Role Phone Jg Dean MD Primary Care Provider [phone] Allergies No known active allergies Medications Medication Sig Dispensed Refills Start Date End Date Status VICODIN 5 MG-500 MG TAB take 1 tablet by oral route every 4-6 hours as needed for pain 0 01/25/2009 Active predniSONE (DELTASONE) 20 mg tabletIndications:Sa croiliitis (HC) 3 tablets daily X 3 days, then 2 tablets daily X 3 days, then 1 tablet daily X 4 days, Take with food or meal. 22 tablets 0 01/30/2009 Active Social History Tobacco Use Types Packs/Day Years Used Date Smoking Tobacco: Every Day Cigarettes Alcohol Use Standard Drinks/Week Comments Not Asked 0 (1 standard drink = 0.6 oz pur e alcohol) Social Connections Answer Date Recorded Frequency of Communication with Friends and Fami ly Not on file 06/19/2021 Sex and Gender Information Value Date Recorded Sex Assigned at Not on file Gender Identity Not on file Sexual Orientation Not on file Obstetrics History Last Filed Vital Signs Vital Sign Reading Time Taken Comments Blood Pressure 155/105 01/30/2009 2:22 PM [facility] Pulse 79 01/30/2009 2:22 PM [facility] Temperature 36.6 ??C (97.9 ??F) 01/30/2009 2:22 PM CS T Respiratory Rate - - Oxygen Saturation - - Inhaled Oxygen Concentration - - Weight 88.9 kg (196 lb) 01/30/2009 2:22 PM [facility] Height - - Body Mass Index - - Plan of Treatment Health Maintenance Due Date Last Done Comments Tdap 06/29/1966 Depression screening for age 12+ 1967 BMI (ht and wt on same day) for age 18+ 06/29/1973 Hepatitis C screening for age 18-79 06/29/1973 Tetanus booster 1975 Colonoscopy through age 75 06/29/2000 Mammogram for age 45-75 06/29/2000 Zoster (shingles) series for age 50+ (1 of 2) 06/30/19 06 Lipids for age 45-75 09/19/2010 09/19/2005 DEXA/DXA scan for age 65+ 06/29/2020 Pneumococcal series for age 65+ (1 of 1 - PCV) 021 COVID-19 vaccine series ( - 2022- season) 3 Influenza for age 65+ 10/28/2023 Procedures Procedure Name Priority Date/Time Associated Diagnosis Comments LIPID PANEL Timed 09/19/2005 11:49 AM CDT from Last 3 Months or Most Recently Relevant to Health Maintenance Results * LIPID PANEL (09/19/2005 11:49 AM CDT) CHOLESTEROL,TOTAL 180 110 - 199 mg/dL [facility] TRIGLYCERIDES 138 <150 mg/dL [facility] HDL CHOLESTEROL 42 >40 mg/dL [facility] CHOL/HDL RATIO 4.29 <4.51 [facility] LDL CHOLESTEROL 110 <131 mg/dL [facility] PATIENT STATUS Fasting [facility] 09/19/2005 11:4 9 AM CDT 09/19/2005 11:[address] NP CHEMISTRY [facility] [address] [place] [address] from Last 3 Months or Most Recently Relevant to Health Maintenance Care Teams Software Engineer Intern Relationship Specialty Start Date End Date Jg Dean MD [address] [place] [address] PCP - General 08/17/14
--- OUTSIDE RECORDS SUMMARY | 2023-08-03 08:36 | XMS_ITS | Continuity of Care Document ---
Author Organization [facility] Address [address] [place] [address] Phone Care Team Providers Care Inseminator Name Role Phone Laura MCCALL, Crispin Unavailable [...] Date Office/Outpatient Visit,Est, Low 2020 Office/Outpatient Visit,New, [facility] 2019 Advance Directives Directive Yes / No Effective Date File Name No Information Encounters Encounter Description Practice Location Reason(s) For Visit Diagnoses Date Provider Providers Copied on Encounter Office/Outpa tient Visit,Est, Low [facility], [address], [place], [id number] , [phone] [facility] [place] Spinal stenosis, cervical regionCervical disc disorder at C4-C5 level with myelopathyCervical disc disorder at C5-C6 level with myelopathy Feb-0 1 Laura Roa. [facility] [place], [address], [address], [place], [place], [id number] , [place]. tel:[phone] Referring Provider: [facility] [address] [place], [address]. tel:[phone] Office/Outpa tient Visit,[facility], [facility], [address], [place], [place], [id number] , [place] tel:[phone] [facility] Spinal stenosis, cervical regionCervical disc disorder at C4-C5 level with myelopathyCervical disc disorder at C5-C6 level with myelopathy Oct- 0 Laura Roa. [facility], [address], [address], [place], [place], [id number] , [place]. tel:[phone] Referring Provider: [facility] [address] [place], [address]. tel:[phone] Family History Family Member Type Diagnosis Age At Onset No Information Payers Payer name Insurance type Covered democrat ID Diego stevebenny(s) [facility] [id number] Social History Type Description Quantity Date Captured [...]
== END 2023-07-16 11:21 | disposition home or self-care (01) ==
LOC: NFLDREF 08-03 08:35
PROVIDERS: PCP Internal Medicine; Referring Provider Internal Medicine; Visit Provider Internal Medicine
DX: E11.9 Type 2 diabetes mellitus without complications (principal)
CPT/HCPCS: 80053; 80061; 82043; 82570

== ENCOUNTER 2023-08-13 10:39 | Outpatient (CLI) | payer MEDICARE, SELFPAY ==
--- OUTSIDE RECORDS SUMMARY | 2023-08-13 10:40 | XMS_ITS | Continuity of Care Document ---
Author Organization [facility] Address [address] [place] [address] Phone Care Team Providers Care Administrative Support Assoc Name Role Phone Laura MCCALL, Crispin Unavailable Unavailable Allergies, Adverse Reactions, Alerts Substance Reaction Status Criticality No Known Allergies Active No Inform ation Medications Medication Instructions Dosage Effective Dates (start - stop) Status Comments METFORMIN HCL ER (unknown strength) Not Available - Active ADVAIR HFA (unknown strength) Not Available - Active AMLODIPINE BESYLATE (unknown strength) Not Available - Active ASPIRIN (unknown strength) Not Available - Active CHLOROTHIAZIDE (unknown strength) Not Available - Active INCRUSE ELLIPTA (unknown strength) Not Available - Active LORATADINE (unknown strength) Not Available - Active MULTIVITAMINS (unknown strength) Not Available - Active TYLENOL (unknown strength) Not Available - Active VENTOLIN HFA (unknown strength) Not Available - Active IRON (unknown strength) Not Available - No Longer Active Procedures Procedure Date Office/Outpatient Visit,Est, Low 2020 Office/Outpatient Visit,New, [facility] 2019 Advance Directives Directive Yes / No Effective Date File Name No Information Encounters Encounter Description Practice Location Reason(s) For Visit Diagnoses Date Provider Providers Copied on Encounter Office/Outpa tient Visit,Est, Low [facility], [address], [place], [id number] , [phone] [facility] [place] Spinal stenosis, cervical regionCervical disc disorder at C4-C5 level with myelopathyCervical disc disorder at C5-C6 level with myelopathy Feb-[address] [facility] [place], [address], [address], [place], [place], [id number] , [place]. tel:[phone] Referring Provider: [facility] [address] [place], [address]. tel:[phone] Office/Outpa tient Visit,[facility], [facility], [address], [place], [place], [id number] , [place] tel:[phone] [facility] Spinal stenosis, cervical regionCervical disc disorder at C4-C5 level with myelopathyCervical disc disorder at C5-C6 level with myelopathy Oct- 0 Laura Roa. [facility], [address], [address], [place], [place], [id number] , [place]. tel:[phone] Referring Provider: [facility] [address] [place], [address]. tel:[phone] Family History Family Member Type Diagnosis Age At Onset No Information Payers Payer name Insurance type Covered republican ID Diego stevebenny(s) [facility] [id number] Social History Type Description Quantity Date Captured [...]
--- OUTSIDE RECORDS SUMMARY | 2023-08-13 10:40 | XMS_ITS | Clinical Summary ---
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 ASSOCIATE Pulse 79 01/30/2009 2:22 PM SHOE ASSOCIATE Temperature 36.6 ??C (97.9 ??F) 01/30/2009 2:22 PM CS T Respiratory Rate - - Oxygen Saturation - - Inhaled Oxygen Concentration - - Weight 88.9 kg (196 lb) 01/30/2009 2:22 PM SHOE ASSOCIATE Height - - Body Mass Index - [...] CDT) CHOLESTEROL,TOTAL 180 110 - 199 mg/dL [facility] TRIGLYCERIDES 138 <150 mg/dL [facility] HDL CHOLESTEROL 42 >40 mg/dL [facility] CHOL/HDL RATIO 4.29 <4.51 [facility] LDL CHOLESTEROL 110 <131 mg/dL [facility] PATIENT STATUS Fasting [facility] 09/19/2005 11:4 9 AM CDT 09/19/2005 11:[address] NP CHEMISTRY [facility] [address] [place] [address] from Last 3 Months or Most Recently Relevant to Health Maintenance Care Teams Paralegal Internship Relationship Specialty Start Date End Date Jg Dean MD [address] [place] [address] PCP - General 08/17/14
--- NOTE | 2023-08-13 12:14 | W.ANESCHARGE ---
Anesthesia Charges Start Date/Time Anesthesia Start Date: 08/13/23 Anesthesia Start Time: 11:48 Stop Date/Time Anesthesia Stop Date: 08/13/23 Anesthesia Stop Time: 12:10
--- NOTE | 2023-08-13 12:45 | W.ANESCHARGE ---
Anesthesia Charges Start Date/Time Anesthesia Start Date: 08/13/23 Anesthesia Start Time: 11:48 Stop Date/Time Anesthesia Stop Date: 08/13/23 Anesthesia Stop Time: 12:10
== END 2023-08-13 10:40 | disposition home or self-care (01) ==
LOC: OP CLINIC 10:39
PROVIDERS: PCP Internal Medicine; Visit Provider Surgery
DX: Z12.11 Encounter for screening for malignant neoplasm of colon (principal); K64.4 Residual hemorrhoidal skin tags; K62.4 Stenosis of anus and rectum; Z86.010 Personal history of colon polyps; Z80.0 Family history of malignant neoplasm of digestive organs
CPT/HCPCS: 00811; 00812; 45378; J2704

== ENCOUNTER 2024-01-07 11:46 | Outpatient (CLI) | payer MEDICARE, SELFPAY ==
--- OUTSIDE RECORDS SUMMARY | 2024-01-10 07:42 | XMS_ITS | Clinical Summary ---
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 SECURITY ARCHITECT Pulse 79 01/30/2009 2:22 PM SENIOR SECURITY ARCHITECT Temperature 36.6 ??C (97.9 ??F) 01/30/2009 2:22 PM CS T Respiratory Rate - - Oxygen Saturation - - Inhaled Oxygen Concentration - - Weight 88.9 kg (196 lb) 01/30/2009 2:22 PM SENIOR SECURITY ARCHITECT Height - - Body Mass Index - [...] series for age 50+ (1 of 2) 06/29/2005 Lipids for age 45-75 09/19/2010 09/19/2005 DEXA/DXA scan for age 65+ 06/29/2020 Medicare Wellness for age 65+ 06/29/2020 Pneumococcal series for age 65+ (1 of 1 - PCV) 06/29/2020 COVID-19 vaccine series ( - 2023- season) 2023 06/11/2020, 05/14/2020 Influenza for age 65+ 10/28/2023 Procedures Procedure Name Priority Date/Time Associated Diagnosis Comments LIPID PANEL Timed 09/19/2005 11:49 AM CDT from Last 3 Months or Most Recently Relevant to Health Maintenance Results * LIPID PANEL (09/19/2005 11:49 AM CDT) CHOLESTEROL,TOTAL 180 110 - 199 mg/dL [facility] TRIGLYCERIDES 138 <150 mg/dL [facility] HDL CHOLESTEROL 42 >40 mg/dL [facility] CHOL/HDL RATIO 4.[address] [facility] LDL CHOLESTEROL 110 <131 mg/dL [facility] PATIENT STATUS Fasting [facility] 09/19/2005 11:4 9 AM CDT 09/19/2005 11:[address] Edwards NP [address]STRY [facility] [address] [place] [address] from Last 3 Months or Most Recently Relevant to Health Maintenance Care Teams Lead Informatica Developer Relationship Specialty Start Date End Date Jg Dean MD [address] [place] [address] PCP - General 08/17/14
--- OUTSIDE RECORDS SUMMARY | 2024-01-10 07:42 | XMS_ITS | Continuity of Care Document ---
Author Organization [facility] Address [address] [place] [address] Phone Care Team Providers Care Field Radio Technician Name Role Phone Laura MCCALL, Crispin Unavailable [...] Date Office/Outpatient Visit,Est, Low 2020 [place]Outpatient Visit,[place], [facility] [place] Advance Directives Directive Yes / No Effective Date File Name No Information Encounters Encounter Description Practice Location Reason(s) For Visit Diagnoses Date Provider Providers Copied on Encounter Office/Outpa tient Visit,Est, Low [facility], [address], [place], [id number] , [phone] [facility] [place] Spinal stenosis, cervical regionCervical disc disorder at C4-C5 level with myelopathyCervical disc disorder at C5-C6 level with myelopathy Feb-0 1 Laura Rao. [facility] [place], [address], [address], [place], [place], [id number] , [place]. tel:[phone] Referring Provider: [facility] [address] [place], [address]. tel:[phone] Office/Outpa tient Visit,[facility], [facility], [address], [place], [place], [id number] , [place] tel:[phone] [facility] Spinal stenosis, cervical regionCervical disc disorder at C4-C5 level with myelopathyCervical disc disorder at C5-C6 level with myelopathy Oct- 0 Laura Roa. [facility], [address], [address], [place], [place], [id number] , [place]. tel:[phone] Referring Provider: [facility] [address] [place], [address]. tel:[phone] Family History Family Member Type Diagnosis Age At Onset No Information Payers Payer name Insurance type Covered libertarian ID Diego stevebenny(s) [facility] [id number] Social History Type Description Quantity Date Captured [...]
== END 2024-01-07 11:47 | disposition home or self-care (01) ==
LOC: NFLDREF 01-10 07:39
PROVIDERS: PCP Internal Medicine; Referring Provider Internal Medicine; Visit Provider Internal Medicine
DX: I10 Essential (primary) hypertension (principal); E11.65 Type 2 diabetes mellitus with hyperglycemia; Z13.220 Encounter for screening for lipoid disorders
CPT/HCPCS: 80053; 80061; 82043; 82570

== ENCOUNTER 2024-04-08 12:04 | Outpatient (CLI) | payer MEDICARE, SELFPAY | END 2024-04-08 12:05 | disposition home or self-care (01) | LOC: NFLDREF 04-12 01:16 | PROVIDERS: PCP Internal Medicine; Referring Provider Internal Medicine; Visit Provider Internal Medicine | DX: E11.9 Type 2 diabetes mellitus without complications (principal); I10 Essential (primary) hypertension; E66.9 Obesity, unspecified | CPT/HCPCS: 80053; 80061; 82043; 82570 ==

== ENCOUNTER 2024-12-09 12:59 | Outpatient (CLI) | payer MEDICARE, SELFPAY ==
--- NOTE | 2024-12-09 13:00 | CRLHL7_ITS ---
For Patients: As a result of the Century Cures Act, medical imaging exams and procedure reports are released immediately into your electronic medical record. You may view this report before your referring provider. If you have questions, please contact your health care provider. INDICATION: BILATERAL SCREENING MAMMOGRAM, ASYMPTOMATIC 69 Y/O FEMALE COMPARISON: 04/19/2023, 06/14/2015 TECHNIQUE: Digital mammogram in CC and MLO projections including computer-aided detection (CAD) and tomosynthesis. BREAST COMPOSITION: There are scattered areas of fibroglandular density. FINDINGS: No suspicious findings. ASSESSMENT: BI-RADS 1 Negative RECOMMENDATION: Annual screening mammogram. A lay language report of this examination will be provided to the patient. Dictated by: Regina Owusu MD @ 12/10/2024 07:06:31 (Electronically Signed)
== END 2024-12-09 13:00 | disposition home or self-care (01) ==
LOC: MAMMO 13:00
PROVIDERS: PCP Internal Medicine; Visit Provider Internal Medicine
DX: Z12.31 Encounter for screening mammogram for malignant neoplasm of breast (principal)
CPT/HCPCS: 77063; 77067

== ENCOUNTER 2025-02-12 13:15 | Outpatient (CLI) | payer MEDICARE, SELFPAY | END 2025-02-12 13:16 | disposition home or self-care (01) | LOC: NFLDREF 02-16 15:14 | PROVIDERS: PCP Internal Medicine; Referring Provider Internal Medicine; Visit Provider Internal Medicine | DX: I10 Essential (primary) hypertension (principal); E11.9 Type 2 diabetes mellitus without complications | CPT/HCPCS: 80053; 80061; 82043; 82570 ==